=== PATIENT | male | born 1970 | race Caucasian/White ===

== ENCOUNTER 2020-06-07 09:20 | Day surgery (SDC) | payer BC ==
[2020-06-03 10:27] VITALS: BMI 24.3
[2020-06-07] MEDS ORDERED: PROPOFOL 20 ML ONE ×2 (09:41)
[2020-06-07 11:05] VITALS: TEMP 97.8
[2020-06-07 11:18] VITALS: BP 105/71; PULSE 59
== END 2020-06-07 11:15 | disposition home or self-care (01) ==
LOC: FASU-ENDO 09:20
PROVIDERS: ATTEND Internal Medicine Gastroenterology
PROC: 0DJD8ZZ Inspection of Lower Intestinal Tract, Via Natural or Artificial Opening Endoscopic (ICD-10-PCS; principal; 2020-06-07 10:22)
DX: Z86.010 Personal history of colon polyps (principal); Z80.0 Family history of malignant neoplasm of digestive organs; K57.30 Diverticulosis of large intestine without perforation or abscess without bleeding; K64.8 Other hemorrhoids